=== PATIENT | male | born 1995 | race Caucasian/White ===

== ENCOUNTER 2020-08-02 21:57 | Emergency (ER) | payer BC, SELFPAY ==
[2020-08-02 22:05] VITALS: BP 117/77; PULSE 52; RESP 16; TEMP 37; O2SAT 96
--- NOTE | 2020-08-02 22:28 | ED.WOUNDLAC ---
HPI - Wound/Laceration General Chief Complaint: Wound/Laceration Stated Complaint: head injury Time Seen by Provider: 08/02/20 22:05 History of Present Illness HPI narrative: Patient is a 25-year-old male who presents ER with a laceration above his left eyebrow. States he was struck in the head by a hockey puck. No LOC. No nausea/vomiting/change in vision. Unknown last tetanus shot. Related Data Home Medications Medication Instructions Recorded Confirmed escitalopram oxalate mg 08/02/20 Allergies Allergy/AdvReac Type Severity Reaction Status Date / Time No Known Allergies Allergy Verified 08/02/20 22:08 Review of Systems Integumentary/Breasts: Comments: Laceration Neurologic: Denies confusion, Denies headache(s), Denies focal weakness and Denies numbness PMFSH Past Medical History Medical History (Updated 08/02/20 @ 22:33 by Keo Valiente MD) Healthy adult male Surgical History Surgical History (Updated 08/02/20 @ 22:28 by Keo Valiente MD) No history of previous surgery Social History Social History (Updated 08/02/20 @ 22:29 by Keo Valiente MD) Smoking status: Never smoker Gender identity (if verbalized by the patient): Male Sexual Orientation (if Verbalized by the Patient): Straight or Heterosexual Exam Narrative: Exam Narrative: GENERAL: Well-appearing, well-nourished, and in no acute distress. HEAD: Normocephalic, Vertical laceration above the left eyebrow medially that is 1 cm in length and very superficial. SKIN: Warm, dry, no rash. NEURO: Alert and oriented x3. PSYCH: Normal mood and affect. Course Course Emergency Course: Tetanus updated. Discharge home. Vital Signs Vital signs: Vital Signs Temperature 98.6 F 08/02/20 22:05 Pulse Rate 52 L 08/02/20 22:05 Respiratory Rate 16 08/02/20 22:05 Blood Pressure 117/77 08/02/20 22:05 Pulse Oximetry 96 08/02/20 22:05 Temperature 98.6 F 08/02/20 22:05 Pulse Rate 52 L 08/02/20 22:05 Respiratory Rate 16 08/02/20 22:05 Blood Pressure 117/77 08/02/20 22:05 Pulse Oximetry 96 08/02/20 22:05 Procedures Laceration Laceration 1: Date: 08/02/20 Time: 22:20 Site: face Side (If applicable): left Size (cm): 1 Description: linear Depth: simple, single layer Pre-repair: irrigated ====== Skin Level ====== Skin layer closed with: dermabond and steri strips ====== Subcutaneous Layer ====== ====== Muscle Layer ====== ====== Tendon Layer ====== Discharge Plan Discharge Clinical Impression: Laceration Patient Disposition: Home, Self-Care Condition: Stable Instructions: Laceration (ED), Skin Adhesive Care (ED), Steristrips (ED) Additional Instructions: Return to the ER if your skin is red and hot, the wound is draining pus, or you have additional concerns. Prescriptions: No Action escitalopram oxalate 10 mg tablet RF: 0 Follow-up/Referrals: PHYSICIAN,MAINTENANCE OPERATOR [Primary Care Provider] - Bina Edwards DO [Physician] - (follow up as needed)
[2020-08-02] MEDS: TETANUS,DIPHTHERIA,AC PERTUSSIS ADULT (0.5 ML) BOOSTRIX IM (22:34)
== END 2020-08-02 22:42 | disposition home or self-care (01) ==
PROVIDERS: Emergency Provider Emergency Medicine
DX: S01.112A Laceration without foreign body of left eyelid and periocular area, initial encounter (principal); W21.220A Struck by ice hockey puck, initial encounter; Y93.22 Activity, ice hockey; Z23 Encounter for immunization
CPT/HCPCS: 12011; 90471; 90715; 99282

== ENCOUNTER 2023-06-08 12:22 | Emergency (ER) | payer OTHER, SELFPAY ==
--- NOTE | 2023-06-08 12:29 | ED.MALEGU ---
HPI - Male Genitourinary General Chief complaint: Urogenital-Male Stated complaint: Std symptoms Time Seen by Provider: 06/08/23 12:30 Source: patient Mode of arrival: ambulatory Limitations: no limitations History of Present Illness HPI Narrative: Patient is a 28 year male who presents with 1 week burning with urination. Patient states he has frequent kidney stones and causes UTIs. Patient states he had unprotected sex on and since then burning with urination along with frequency and urgency have worsened. Patient also reports small amounts of discharge that started on Thursday. Denies any low back pain, fever, chills, nausea, vomiting, diarrhea. Denies any obvious blood in urine. Related Data Home Medications Medication Instructions Recorded Confirmed escitalopram oxalate 10 mg tablet 10 mg PO DAILY 08/02/20 06/08/23 Allergies Allergy/AdvReac Type Severity Reaction Status Date / Time No Known Allergies Allergy Verified 06/08/23 12:48 Review of Systems Review of Systems: All systems reviewed & are unremarkable except as noted in HPI and below Constitutional: Constitutional: Denies chills, Denies fever(s), Denies headache(s), Denies malaise and Denies weakness Eyes: Eyes: Denies change in vision, Denies eye discharge and Denies irritation ENT: Denies otalgia, Denies headache(s), Denies nasal congestion, Denies nasal discharge, Denies sinus pain and Denies sore throat Cardiovascular: Cardiovascular: Denies chest pain, Denies edema, Denies palpitations and Denies dyspnea Respiratory: Respiratory: Denies cough and Denies dyspnea Gastrointestinal: Gastrointestinal: Denies abdominal pain, Denies diarrhea, Denies nausea and Denies vomiting Genitourinary: Genitourinary: Denies hematuria, Reports dysuria, Denies flank pain, Reports penile discharge, Reports urinary frequency and Reports urinary urgency Musculoskeletal: Musculoskeletal: Denies back pain and Denies numbness Integumentary/Breasts: Skin/Breast: Denies pruritus and Denies rash Neurologic: Denies headache(s), Denies numbness and Denies weakness Psychiatric: Psychiatric: Reports no additional psychiatric complaints Endocrine: Endocrine: Denies palpitations PMFSH Past Medical History Medical History Healthy adult male Surgical History Surgical History No history of previous surgery Social History Social History Smoking status: Never smoker Gender identity (if verbalized by the patient): Male Sexual Orientation (if Verbalized by the Patient): Straight or Heterosexual Comments At time of signature, agree with nursing past medical, surgical, social and family history. There is no relevant family history pertinent to the presenting complaint. Exam Const: General: cooperative, healthy appearing, comfortable, no acute distress and well nourished Nutritional Appearance: well nourished Orientation/consciousness: patient oriented x3 HENMT: Head: normocephalic and atraumatic Ears: external ears normal Face/Nose/Sinus: Normal external nose present, Normal nares present and normal facial exam Face and sinus: normal facial exam Eyes: General: appearance normal, both eyes and all related structures Pupils: Equal, round and reactive pupils present EOM: EOMs intact bilaterally Neck: Neck: normal visual inspection, full ROM and supple Chest: Chest palpation & inspection: normal inspection of the chest Resp: Effort & Inspection: normal respiratory effort and able to speak in complete sentences Cardio: Rate: regular rate Rhythm: regular rhythm GI: Inspection: normal to inspection GI Palp: No abdominal tenderness and Yes Soft to palpation : General: Yes no CVA tenderness Back/Spine/Pelvis: Back: no CVA tenderness Skin: General skin exam: normal color and no rashes
[2023-06-08 12:35] VITALS: BP 111/82; PULSE 61; RESP 16; TEMP 36.7; O2SAT 98
[2023-06-08 21:11] LABS: Trichomonas Vag PCR NOT DETECTED (NOT DETECTE)
[2023-06-08 21:44] LABS: Chlamydia trachomatis NOT DETECTED (NOT DETECTE); Neisseria gonorrhoeae PCR DETECTED (NOT DETECTE)
--- NOTE | 2023-06-09 12:58 | ED.MALEGU ---
HPI - Male Genitourinary General Chief complaint: Urogenital-Male Stated complaint: Std symptoms Time Seen by Provider: 06/08/23 12:30 Source: patient Mode of arrival: ambulatory Limitations: no limitations Related Data Home Medications Medication Instructions Recorded Confirmed escitalopram oxalate 10 mg tablet 10 mg PO DAILY 08/02/20 06/08/23 Allergies Allergy/AdvReac Type Severity Reaction Status Date / Time No Known Allergies Allergy Verified 06/08/23 12:48 [facility] Past Medical History Medical History Healthy adult male Surgical History Surgical History No history of previous surgery Social History Social History Smoking status: Never smoker Gender identity (if verbalized by the patient): Male Sexual Orientation (if Verbalized by the Patient): Straight or Heterosexual Course Vital Signs Vital signs: Vital Signs Temperature 36.7 C 06/08/23 12:35 Pulse Rate 61 06/08/23 12:35 Respiratory Rate 16 06/08/23 12:35 Blood Pressure 111/82 06/08/23 12:35 Pulse Oximetry 98 06/08/23 12:35 Temperature 36.7 C 06/08/23 12:35 Pulse Rate 61 06/08/23 12:35 Respiratory Rate 16 06/08/23 12:35 Blood Pressure 111/82 06/08/23 12:35 Pulse Oximetry 98 06/08/23 12:35 MDM - Male Genitourinary Lab Data Labs: Lab Results 06/08/23 Range/Units 14:15 C. trachomatis (PCR) Not detected (NOT DETECTE) N. gonorrhoeae (PCR) Detected A (NOT DETECTE) T. vaginalis (PCR) Not detected (NOT DETECTE) Discharge Plan Discharge Patient Disposition: Home, Self-Care Condition: Stable Instructions: Urinary Tract Infection in Men (ED) Additional Instructions: We will send a urine culture to the lab, based on your symptoms and urine dip we will start treatment today. If culture comes back and bacteria is not susceptible to antibiotic, your prescription may change. Your symptoms should improve within a day of starting antibiotics, but you should finish all the antibiotic pills you get. Otherwise your infection might come back Continue with increased water intake. Take Tylenol or ibuprofen as needed for pain or fever. Follow-up with primary care provider for urine recheck or see ER visit if condition worsens with high fever, nausea, vomiting, severe back pain You have been tested for potential gonorrhea, chlamydia, and trichomoniasis today. You will receive a phone tomorrow if any positive results. It is very important that you avoid unprotected intercourse for 7 days and until your partner(s) have been treated. Please encourage your partner(s) to seek testing and treatment. When you have been exposed to sexually transmitted infections, it is important that you seek comprehensive testing, since we do not provide testing for all sexually transmitted infections. Some infections can have no symptoms, but cause serious health problems. Contact your health care provider or report to the emergency department if: ? You have genital swelling or pain, or unusual bleeding. ? You have joint pain, rash, swollen lymph nodes or night sweats. ? You are severe abdominal pain. ? You have a fever. ? Symptoms do not go away or they get worse even after treatment. ? You have bleeding or pain during sex. Prescriptions: New sulfamethoxazole-trimethoprim 800-160 mg tablet 1 tablet PO Q12H 7 Days Qty: 14 0RF No Action escitalopram oxalate 10 mg tablet 10 mg PO DAILY Follow-up/Referrals: Sofie,Fransisco Nichols MD [Primary Care Provider] - Stand Alone Forms: Work/School Release IP Time of Disposition: 13:05
== END 2023-06-08 13:07 | disposition home or self-care (01) ==
PROVIDERS: Emergency Provider Nurse Practitioner Family; PCP Family Medicine Sports Medicine
DX: A54.9 Gonococcal infection, unspecified (principal); N30.00 Acute cystitis without hematuria
CPT/HCPCS: 81003; 87086; 87491; 87591; 87661; 99213; G0463

== ENCOUNTER 2023-06-09 12:49 | Emergency (ER) | payer OTHER, SELFPAY ==
--- NOTE | 2023-06-09 12:59 | ED.MALEGU ---
HPI - Male Genitourinary General Chief complaint: Recheck/Abnormal Lab/Rx Stated complaint: STD Time Seen by Provider: 06/09/23 13:01 Source: patient Mode of arrival: ambulatory Limitations: no limitations History of Present Illness HPI Narrative: Sea is a 28-year-old male patient presenting to the clinic today for treatment of gonorrhea. He was seen yesterday for STD testing and did not want empiric treatment at that time. GC chlamydia testing came back positive for gonorrhea today. He was also placed on some antibiotics for UTI. The urine culture is still pending. Will give Rocephin 500 mg IM in the clinic today to treat gonorrhea. Related Data Home Medications Medication Instructions Recorded Confirmed escitalopram oxalate 10 mg tablet 10 mg PO DAILY 08/02/20 06/09/23 Allergies Allergy/AdvReac Type Severity Reaction Status Date / Time No Known Allergies Allergy Verified 06/08/23 12:48 Review of Systems Review of Systems: Pertinent positives per HPI. Patient denies any fever, chills, rash, headache, visual changes, dizziness, cough, runny nose, sore throat, shortness of breath, chest pain, palpitations, nausea, vomiting, diarrhea, constipation, abdominal pain. [facility] Past Medical History Medical History Healthy adult male Surgical History Surgical History No history of previous surgery Social History Social History Smoking status: Never smoker Gender identity (if verbalized by the patient): Male Sexual Orientation (if Verbalized by the Patient): Straight or Heterosexual Comments At the time of my signature, I reviewed and agree with the nursing past medical, surgical, social, and family history. There is no relevant family history pertinent to the patient complaint. Exam Narrative: General: Well-developed, well nourished, in no apparent distress. Head: Normocephalic, atraumatic. Cardio: Regular rate and rhythm, s1 and s2 normal, no murmur appreciated. Resp: Clear to auscultation bilaterally, no rhonchi, rales, wheezing or rubs. Abdomen: Soft, pliable, bowel sounds present in all quadrants, non-tender to palpation, no organomegly, no CVAT tenderness. : Deferred Course Course Emergency Course: Portions of this record may have been created with voice recognition software. Level of Care: Express Care Visit Vital Signs Vital signs: Vital signs reviewed MDM - Male Genitourinary MDM Narrative Medical decision making narrative: At the time of visit patient is resting on the exam table. Rocephin 500 mg IM given in the clinic today to treat gonorrhea. Supportive measures were discussed with the patient he voiced understanding discharge instructions agrees to treatment plan. Differential Diagnosis Differential diagnosis: Likely urinary tract infection, urethritis and other (Gonorrhea-sexually transmitted infection) Discharge Plan Discharge Clinical Impression: Acute gonorrhea of genitourinary tract Patient Disposition: Home, Self-Care Condition: Stable Instructions: Antibiotic Form, Gonorrhea (ED) Additional Instructions: Rocephin 500 mg IM given in the clinic today Continue current medications We have treated you for STIs in the clinic today. Avoid any sexual activity- includes oral, anal, or vaginal intercourse x1 week Wear condoms during sexual activity to prevent sexually transmitted infections If symptoms worsen after treatment recommend reevaluation with your PCP Prescriptions: No Action sulfamethoxazole-trimethoprim 800-160 mg tablet 1 tablet PO Q12H 7 Days Qty: 14 0RF escitalopram oxalate 10 mg tablet 10 mg PO DAILY Follow-up/Referrals: Sofie,Fransisco Nichols MD [Primary Care Provider] - Time of Disposition: 13:01 [facility]
[2023-06-09 13:02] VITALS: BP 113/76; PULSE 73; RESP 18; TEMP 36.1; O2SAT 97
[2023-06-09] MEDS: cefTRIAXone 500 MG, LIDOCAINE HCL 1% LOCAL INJ 1 ML IM (13:11)
== END 2023-06-09 13:27 | disposition home or self-care (01) ==
PROVIDERS: Emergency Provider Nurse Practitioner Family; PCP Family Medicine Sports Medicine
DX: A54.00 Gonococcal infection of lower genitourinary tract, unspecified (principal)
CPT/HCPCS: 96372; 99213; G0463; J0696